=== PATIENT | male | born 1980 | race Hispanic/Latino ===

== ENCOUNTER 2019-04-07 07:53 | Emergency (ER) | payer OTHER, SELFPAY ==
[2019-04-07] MEDS ORDERED: Ibuprofen 200 MG TAB ONE ×2 (10:23→10:27)
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
== END 2019-04-07 11:23 | disposition home or self-care (01) ==
LOC: ERS 07:53
DX: S00.83XA Contusion of other part of head, initial encounter (principal); F10.129 Alcohol abuse with intoxication, unspecified; Y04.0XXA Assault by unarmed brawl or fight, initial encounter
CPT/HCPCS: 70486